=== PATIENT | female | born 1985 | race Asian ===

== ENCOUNTER → 2024-10-14 | Outpatient (CLI) | payer MEDICAID, SELFPAY ==
--- NOTE | 2024-10-14 15:15 | XR_ITS ---
Examination: Screening digital mammography, bilateral Computer aided detection 3-D breast Tomosynthesis, bilateral Date and time of exam: October 14, 2024 1534 hours Indication: Screening Technique: Nonmagnified MLO, CC views of the breasts to been obtained, reconstructed from 3-D Tomosynthesis images. R2 computer aided detection program utilized for evaluation of suspicious masses and/or abnormal calcifications. 3-D Tomosynthesis images obtained. Findings: The breasts are heterogeneously dense, which may obscure small masses Focus of possible very architectural distortion upper right breast MLO view, 4 cm from the nipple Impression: BI-RADS Category 0: Incomplete: Need additional imaging evaluation Focus of possible early architectural distortion upper right breast MLO view, recommend follow-up spot tomographic views upper outer quadrant right breast bilateral breast sonography to complete workup.
== END | disposition home or self-care (01) ==
LOC: CDIM 15:17
PROVIDERS: Referring Provider Physician Assistant; Visit Provider Physician Assistant
DX: Z12.31 Encounter for screening mammogram for malignant neoplasm of breast (principal); R92.8 Other abnormal and inconclusive findings on diagnostic imaging of breast
CPT/HCPCS: 77063; 77067

== ENCOUNTER → 2024-11-25 | Outpatient (CLI) | payer MEDICAID, SELFPAY ==
--- NOTE | 2024-11-25 09:00 | XR_ITS ---
Examination: Breast ultrasound complete, bilateral Date and time of exam: November 25, 2024 0939 hours INDICATIONS: Mammogram October 14, 2024 early architectural distortion right breast MLO view Technique: Real-time grayscale ultrasonographic imaging bilateral breasts, including all 4 quadrants as well as nipple retroareolar and axillary regions. Findings: Sonographic images right breast 9:00 cyst 15 x 10 mm 10:00 cyst 10 x 7 mm No solid nodules Sonographic images left breast 12:00 cyst 4 x 3 mm 2:00 cyst 3 x 4 mm 8:00 cyst 4 x 3 mm No solid nodules IMPRESSION: BI-RADS Category 2: Benign findings
--- NOTE | 2024-11-25 10:00 | XR_ITS ---
Examination: Diagnostic digital mammography, unilateral, right Computer aided detection 3-D breast Tomosynthesis, unilateral Date and time of exam: November 25, 2024 1008 hours INDICATIONS: Mammogram October 14, 2024 cardiac ventricular distortion upper right breast MLO view Technique: Nonmagnified MLO, CC views of the right breast have been obtained, reconstructed from 3-D Tomosynthesis images. R2 computer aided detection program utilized for evaluation of suspicious masses and/or abnormal calcifications. 3-D Tomosynthesis images obtained. Findings: The breast is heterogeneously dense, which may obscure small masses There remains subtle architectural distortion upper right breast on the spot compression view Impression: BI-RADS category 3: Probably benign findings One additional 6 month right mammogram follow-up strongly recommended
== END | disposition home or self-care (01) ==
PROVIDERS: PCP Physician Assistant; Referring Provider Physician Assistant; Visit Provider Physician Assistant
DX: R92.8 Other abnormal and inconclusive findings on diagnostic imaging of breast (principal); R92.331 Mammographic heterogeneous density, right breast
CPT/HCPCS: 76641; 77061; 77065; G0279